=== PATIENT | male | born 1985 | race Caucasian/White ===

== ENCOUNTER 2020-09-29 16:38 | Emergency (ER) | payer SELFPAY ==
--- NOTE | 2020-09-29 16:41 | EDM.PDOC ---
ED HPI GENERAL MEDICAL PROBLEM - General Chief Complaint: Drug or Alcohol Abuse Stated Complaint: DETOX Time Seen by Provider: 09/29/20 16:38 Source of Information: Reports: Patient History Limitations: Reports: No Limitations - History of Present Illness INITIAL COMMENTS - FREE TEXT/NARRATIVE: 35-year-old male presents requesting drug and alcohol detox program. Patient admits to using heroin and alcohol. States that he will go on long benders lasting 1 to 2 weeks where all he does is drink alcohol and use drugs and not eat. Notes he has lost roughly 30 pounds in the last month. Denies suicidal or homicidal ideation. Last heroin use was roughly 1 week ago. Last drink of alcohol was this morning. He noted that this morning he has had nausea, vomiting, shakiness consistent with withdrawal. He has been in contact with [facility] services over the weekend as he was looking for rehab options. As he was in withdrawal he was advised to come to the emergency department[facility] that they do not have inpatient rehab options as patient is requesting. - Related Data Allergies Allergy/AdvReac Type Severity Reaction Status Date / Time codeine Allergy Other Verified 09/29/20 16:55 Home Meds: Home Meds . [No Known Home Meds] 09/29/20 [History] ED ROS GENERAL - Review of Systems Review Of Systems: Comprehensive ROS is negative, except as noted in HPI. ED EXAM, GENERAL - Physical Exam Exam: See Below Exam Limited By: No Limitations General Appearance: Alert, WD/WN, No Apparent Distress Throat/Mouth: Normal Voice, No Airway Compromise Head: Atraumatic, Normocephalic Respiratory/Chest: No Respiratory Distress, Lungs Clear, Normal Breath Sounds, No Accessory Muscle Use Cardiovascular: Normal Peripheral Pulses, Tachycardia GI/Abdominal: Soft, Non-Tender Extremities: Normal Inspection Neurological: Alert, Normal Gait Psychiatric: Normal Affect, Normal Mood Skin Exam: Warm, Dry, Intact, Normal Color #1 Interpretation EKG Date: 09/29/20 Time: 16:52 Rhythm: NSR Rate (Beats/Min): 121 [place]: Normal P-Wave: Present QRS: Normal ST-T: Normal QT: Normal MN/PQ Interval: 140 Comparison: NA - No Prior EKG EKG Interpretation Comments: sinus tachycardia Course - Vital Signs Last Recorded V/S: Last Vital Signs Temp 98 F 09/29/20 16:55 Pulse 132 H 09/29/20 16:55 Resp 22 H 09/29/20 16:55 BP 143/97 H 09/29/20 16:55 Pulse Ox 96 09/29/20 16:55 - Orders/Labs/Meds Orders: Active Orders 24 hr Category Date Time Status EKG Documentation Completion [RC] STAT Care 09/29/20 17:00 Active DRUG SCREEN, URINE [URCHEM] Stat Lab 09/29/20 17:02 Ordered Potassium Chloride Riders [KCL in Water 20 MEQ/50 ML] Med 09/29/20 17:45 Active 20 meq Premix Bag 1 bag IV ONETIME Sodium Chloride 0.9% [Normal Saline] 1,000 ml Med 09/29/20 17:53 Active IV .Bolus Sodium Chloride 0.9% [Saline Flush] Med 09/29/20 17:00 Active 10 ml FLUSH ASDIRECTED PRN Sodium Chloride 0.9% [Saline Flush] Med 09/29/20 17:00 Active 2.5 ml FLUSH ASDIRECTED PRN Saline Lock Insert [OM.PC] Stat Oth 09/29/20 17:01 Ordered Medication Orders Potassium Chloride 20 meq/ (Premix) 50 mls @ 25 mls/hr IV ONETIME ONE Stop: 09/29/20 19:44 Sodium Chloride (Normal Saline) 1,000 mls @ 999 mls/hr IV .Bolus ONE Stop: 09/29/20 18:53 Sodium Chloride (Sodium Chloride 0.9% 10 Ml Syringe) 10 ml FLUSH ASDIRECTED PRN PRN Reason: Keep Vein Open Last Admin: 09/29/20 17:08 Dose: 10 ml Documented by: MARILYNN Sodium Chloride (Sodium Chloride 0.9% 2.5 Ml Syringe) 2.5 ml FLUSH ASDIRECTED PRN PRN Reason: Keep Vein Open Last Admin: 09/29/20 17:08 Dose: 2.5 ml Documented by: MARILYNN Labs: Laboratory Tests 09/29/20 09/29/20 09/29/20 Range/Units 16:58 16:58 17:03 WBC 7.34 (4.0-11.0) K/uL RBC 5.83 (4.50-5.90) M/uL Hgb 17.5 H (13.0-17.0) g/dL Hct 48.4 (38.0-50.0) % MCV 83.0 (80.0-98.0) fL MCH 30.0 (27.0-32.0) pg MCHC 36.2 (31.0-37.0) g/dL RDW Std Deviation 35.5 (28.0-62.0) fl RDW Coeff of Baylee 12 (11.0-15.0) % Plt Count 120 L (150-400) K/uL MPV 10.80 (7.40-12.00) fL Neut % (Auto) 56.0 (48.0-80.0) % Lymph % (Auto) 34.9 (16.0-40.0) % Steele % (Auto) 8.3 (0.0-15.0) % Eos % (Auto) 0.7 (0.0-7.0) % Baso % (Auto) 0.1 (0.0-1.5) % Neut # (Auto) 4.1 (1.4-5.7) K/uL Lymph # (Auto) 2.6 H (0.6-2.4) K/uL Steele # (Auto) 0.6 (0.0-0.8) K/uL Eos # (Auto) 0.1 (0.0-0.7) K/uL Baso # (Auto) 0.0 (0.0-0.1) K/uL Sodium 135 L (136-148) mmol/L Potassium 2.4 L* (3.5-5.1) mmol/L Chloride 91 L (98-107) mmol/L Carbon Dioxide 30.6 (21.0-32.0) mmol/L BUN 11 (7.0-18.0) mg/dL Creatinine 1.3 (0.8-1.3) mg/dL Est Cr Clr Drug Dosing 79.31 mL/min Estimated GFR (MDRD) > 60.0 ml/min Glucose 206 H (74-106) mg/dL Calcium 8.1 L (8.5-10.1) mg/dL Magnesium 2.0 (1.8-2.4) mg/dL Total Bilirubin 0.7 (0.2-1.0) mg/dL AST 275 H (15-37) IU/L ALT 246 H (14-63) IU/L Alkaline Phosphatase 123 H (46-116) U/L Total Protein 7.5 (6.4-8.2) g/dL Albumin 3.7 (3.4-5.0) g/dL Globulin 3.8 (2.6-4.0) g/dL Albumin/Globulin Ratio 1.0 (0.9-1.6) TSH 3rd Generation 0.68 (0.36-3.74) uIU/mL Ethyl Alcohol 281 mg/dL SARS-CoV-2 RNA (CARLITO) NEGATIVE (NEGATIVE) Meds: Medications Generic Name Dose Route Start Last Admin Trade Name Freq PRN Reason Stop Dose Admin Potassium Chloride 20 meq/ 50 mls @ 25 mls/hr 09/29/20 17:45 Premix IV 09/29/20 19:44 ONETIME ONE Sodium Chloride 1,000 mls @ 999 mls/hr 09/29/20 17:53 Normal Saline IV 09/29/20 18:53 .Bolus ONE Sodium Chloride 10 ml 09/29/20 17:00 09/29/20 17:08 Sodium Chloride 0.9% 10 Ml Syringe FLUSH 10 ml ASDIRECTED PRN Administration Keep Vein Open Sodium Chloride 2.5 ml 09/29/20 17:00 09/29/20 17:08 Sodium Chloride 0.9% 2.5 Ml Syringe FLUSH 2.5 ml ASDIRECTED PRN Administration Keep Vein Open Discontinued Medications Generic Name Dose Route Start Last Admin Trade Name Freq PRN Reason Stop Dose Admin Chlordiazepoxide HCl 25 mg 09/29/20 17:03 09/29/20 17:08 Chlordiazepoxide 25 Mg Cap PO 09/29/20 17:04 25 mg ONETIME ONE Administration Sodium Chloride 1,000 mls @ 999 mls/hr 09/29/20 17:00 09/29/20 17:08 Normal Saline IV 09/29/20 18:00 999 mls/hr .Bolus ONE Administration Lorazepam 1 mg 09/29/20 17:03 09/29/20 17:08 Lorazepam 2 Mg/Ml Sdv IVPUSH 09/29/20 17:04 1 mg ONETIME ONE Administration Ondansetron HCl 4 mg 09/29/20 17:00 09/29/20 17:08 Ondansetron 4 Mg/2 Ml Sdv IVPUSH 09/29/20 17:01 4 mg ONETIME ONE Administration Potassium Chloride 40 meq 09/29/20 17:45 Potassium Chloride 10% 20 Meq/15 Ml Soln 15 Ml Ud Cup PO 09/29/20 17:46 ONETIME ONE - Re-Assessments/Exams Free Text/Narrative Re-Assessment/Exam: 09/29/20 17:05 Patient presents with complaints of heroin and alcohol withdrawal. He would like inpatient rehab. Will get medical clearance labs and reach out to transfer center for detox bed. 09/29/20 17:54 Potassium low at 2.4; repletment ordered. AST/ALT elevated 09/29/20 18:[address] Rossi ED physician who agrees to accept patient for transfer; Dr. Leonard psychiatry agrees to consult for detox admit Departure - Departure Time of Disposition: 18:03 Disposition: DC/Tfer to Acute Hospital 02 Condition: Good Clinical Impression: Alcohol withdrawal syndrome Qualifiers: Complication of substance-induced condition: uncomplicated Qualified Code(s): F10.230 - Alcohol dependence with withdrawal, uncomplicated - Discharge Information Referrals: PCP,None [Primary Care Provider] - Forms: ED Department Discharge Sepsis Event Note (ED) - Focused Exam Vital Signs: Vital Signs Temp Pulse Resp BP Pulse Ox 09/29/20 16:55 98 F 132 H 22 H 143/97 H 96 - My Orders Last 24 Hours: My Active Orders 09/29/20 17:00 EKG Documentation Completion [RC] STAT Sodium Chloride 0.9% [Saline Flush] 10 ml FLUSH ASDIRECTED PRN Sodium Chloride 0.9% [Saline Flush] 2.5 ml FLUSH ASDIRECTED PRN 09/29/20 17:01 Saline Lock Insert [OM.PC] Stat 09/29/20 17:02 DRUG SCREEN, URINE [URCHEM] Stat 09/29/20 17:45 Potassium Chloride Riders [KCL in Water 20 MEQ/50 ML] 20 meq Premix Bag 1 bag IV ONETIME 09/29/20 17:53 Sodium Chloride 0.9% [Normal Saline] 1,000 ml IV .Bolus - Assessment/Plan Last 24 Hours: My Active Orders 09/29/20 17:00 EKG Documentation Completion [RC] STAT Sodium Chloride 0.9% [Saline Flush] 10 ml FLUSH ASDIRECTED PRN Sodium Chloride 0.9% [Saline Flush] 2.5 ml FLUSH ASDIRECTED PRN 09/29/20 17:01 Saline Lock Insert [OM.PC] Stat 09/29/20 17:02 DRUG SCREEN, URINE [URCHEM] Stat 09/29/20 17:45 Potassium Chloride Riders [KCL in Water 20 MEQ/50 ML] 20 meq Premix Bag 1 bag IV ONETIME 09/29/20 17:53 Sodium Chloride 0.9% [Normal Saline] 1,000 ml IV .Bolus
[2020-09-29] MEDS ORDERED: Ondansetron 4 MG/2 ML SDV IVPUSH ONE (17:00)
[2020-09-29] MEDS ORDERED: Sodium Chloride 0.9% 10 ML Syringe FLUSH PRN (17:00)
[2020-09-29] MEDS ORDERED: Sodium Chloride 0.9% 2.5 ML Syringe FLUSH PRN (17:00)
[2020-09-29] MEDS ORDERED: Sodium Chloride 0.9% 1,000 ML IV ONE ×2 (17:00→17:53)
[2020-09-29] MEDS ORDERED: LORazepam 2 MG/ML SDV IVPUSH ONE (17:03)
[2020-09-29] MEDS ORDERED: chlordiazePOXIDE 25 MG Cap PO ONE (17:03)
[2020-09-29 17:33] LABS: BLOOD UREA NITROGEN,BUN 11 mg/dL (7.0-18.0); CARBON DIOXIDE,CO2 30.6 mmol/L (21.0-32.0); CHLORIDE,CL 91 mmol/L (98-107); GLUCOSE RANDOM 206 mg/dL (74-106); SODIUM,NA 135 mmol/L (136-148)
[2020-09-29 17:44] LABS: POTASSIUM,K 2.4 mmol/L (3.5-5.1)
[2020-09-29] MEDS ORDERED: Potassium Chloride Riders 20 MEQ in Premix Bag 1 BAG IV ONE (17:45)
[2020-09-29] MEDS ORDERED: Potassium Chloride 10% 20 MEQ/15 ML Soln 15 ML UD Cup PO ONE (17:45)
[2020-09-29] MEDS ORDERED: Potassium Chloride 10% 20 MEQ/15 ML Soln 30 ML UD Cup ONE (18:04)
[2020-09-29] MEDS ORDERED: Potassium Chloride 10% 20 MEQ/15 ML Soln 30 ML UD Cup PO ONE (18:08)
== END 2020-09-29 20:53 ==
LOC: MW.ED 16:38
DX: F10.230 Alcohol dependence with withdrawal, uncomplicated (principal); R00.0 Tachycardia, unspecified; Y90.8 Blood alcohol level of 240 mg/100 ml or more; Z88.5 Allergy status to narcotic agent; Z20.822 Contact with and (suspected) exposure to COVID-19
CPT/HCPCS: 36415; 80053; 80305; 80307; 83735; 84443; 85025; 87635; 93005; 96365; 96366; 96375; 99285; A9270; J2060; J2405; J3480; J7030; 93010; 99284; U0002

== ENCOUNTER 2022-03-26 08:36 | Emergency (ER) | payer MEDICAID ==
[2022-03-26] MEDS ORDERED: Ketorolac 30 MG/ML SDV IVPUSH ONE (08:45)
[2022-03-26] MEDS ORDERED: Sodium Chloride 0.9% 2.5 ML Syringe FLUSH PRN (08:45)
[2022-03-26] MEDS ORDERED: Ondansetron 4 MG/2 ML SDV IVPUSH ONE ×2 (08:45→11:31)
[2022-03-26] MEDS ORDERED: Sodium Chloride 0.9% 1,000 ML IV ONE ×4 (08:45→10:12)
[2022-03-26] MEDS ORDERED: Sodium Chloride 0.9% 10 ML Syringe FLUSH PRN (08:45)
[2022-03-26] MEDS ORDERED: LORazepam 2 MG/ML SDV IVPUSH ONE ×3 (08:45→18:26)
[2022-03-26 09:18] LABS: BLOOD UREA NITROGEN,BUN 7 mg/dL (7.0-18.0); CARBON DIOXIDE,CO2 27.9 mmol/L (21.0-32.0); CHLORIDE,CL 96 mmol/L (98-107); GLUCOSE RANDOM 147 mg/dL (74-106); LIPASE 217 U/L (73-393); POTASSIUM,K 3.3 mmol/L (3.5-5.1); SODIUM,NA 137 mmol/L (136-148)
[2022-03-26 09:19] LABS: ESTIMATED GFR 41 mL/min (>60)
[2022-03-26 12:30] LABS: CARBON DIOXIDE,CO2 28.5 mmol/L (21.0-32.0); POTASSIUM,K 3.4 mmol/L (3.5-5.1)
[2022-03-26] MEDS ORDERED: Nicotine 21 MG/24 Hr Patch TRDERM ONE (18:26)
[2022-03-26] MEDS ORDERED: guaiFENesin 600 MG Tab.ER PO ONE (18:26)
[2022-03-26] MEDS ORDERED: Nicotine 21 MG/24 Hr Patch ONE (18:27)
== END 2022-03-26 19:30 ==
LOC: MW.ED 08:36
DX: R07.9 Chest pain, unspecified (principal); E86.0 Dehydration; F10.139 Alcohol abuse with withdrawal, unspecified; Z88.5 Allergy status to narcotic agent
CPT/HCPCS: 36415; 71045; 80048; 80053; 80305; 80307; 81003; 83690; 84484; 85025; 87635; 93005; 96361; 96374; 96375; 96376; 99285; A9270; J1885; J2060; J2405; J3490; J7030; U0002

== ENCOUNTER 2022-06-17 15:34 | Emergency (ER) | payer MEDICAID ==
[2022-06-17] MEDS ORDERED: Sodium Chloride 0.9% 1,000 ML IV ONE ×2 (15:38→17:28)
[2022-06-17] MEDS ORDERED: Ondansetron 4 MG/2 ML SDV IVPUSH ONE (15:54)
[2022-06-17] MEDS ORDERED: Ketorolac 30 MG/ML SDV IVPUSH ONE (15:54)
[2022-06-17] MEDS ORDERED: LORazepam 2 MG/ML SDV IVPUSH ONE (15:54)
[2022-06-17 17:02] LABS: CARBON DIOXIDE,CO2 23.5 mmol/L (21.0-32.0); POTASSIUM,K 3.6 mmol/L (3.5-5.1)
[2022-06-17 17:12] LABS: ACETAMINOPHEN <2.0 ug/mL
== END 2022-06-17 21:30 | disposition home or self-care (01) ==
LOC: MW.ED 15:34
DX: F10.10 Alcohol abuse, uncomplicated (principal); R11.2 Nausea with vomiting, unspecified; R10.84 Generalized abdominal pain; T50.6X5A Adverse effect of antidotes and chelating agents, initial encounter; Z88.5 Allergy status to narcotic agent; Z20.822 Contact with and (suspected) exposure to COVID-19
CPT/HCPCS: 36415; 80053; 80143; 80179; 80307; 83690; 83735; 84443; 85025; 87635; 96361; 96374; 96375; 99284; J1885; J2060; J2405; J7030; U0002